=== PATIENT | female | born 1950 | race Caucasian/White ===

== ENCOUNTER 2016-02-18 14:52 | Emergency (ER) | payer MEDICARE, OTHER ==
[~2016-02-18] VITALS: Ht 157.5 cm; Wt 70.0 kg
[2016-02-18 15:01] VITALS: BP 138/60; PULSE 62; RESP 16; TEMP 97.6; O2SAT 99
[2016-02-18] MEDS ORDERED: MAXZ PO (15:12)
[2016-02-18] MEDS ORDERED: CALC1TAB42 PO (15:12)
[2016-02-18] MEDS ORDERED: BARIATRIC VITAMIN (15:12)
[2016-02-18] MEDS ORDERED: ALLE60TA PO (15:12)
--- NOTE | 2016-02-18 15:38 | PD ---
HPI Chief Complaint: Eye Problems/Injury Time Seen by Provider: 15:15 Travel History International Travel<30 days: No Contact w/Intl Traveler<30days: No Traveled to known affect area: No History of Present Illness HPI 66-year-old female with history of lupus presents to the emergency room for evaluation of "water blister" on the right eye that started yesterday. Patient states while eating lunch, she felt like something hit her eye and then had foreign body sensation the remainder of the day. When she went home and looked in the mirror she saw 2 blisters in the eye. States sometime after midnight one of the blisters popped on its own. Patient called her assistant to the vice president this morning who lives in [place] and he recommended she come straight to the emergency room for evaluation. She has history of shingles in the right eye but states this feels nothing like that. Denies significant pain. Reports burning/irritation. Denies changes in visual acuity, photophobia, drainage, or significant redness. PFSH Past Medical History Hx Anticoagulant Therapy: No Cardiovascular Problems: Yes (HTN) Diabetes: No Hypertension: Yes ?: Not Past Surgical History Eye Surgery: Yes (CATARACTS) Hysterectomy: Yes Other Surgery: Yes (GASTRIC BYPASS, LAROSE'S [facility]ROMA) Social History Alcohol Use: No Tobacco Use: No Substance Use: No Allergies-Medications (Allergen,Severity, Reaction): Coded Allergies: Lovenox (Verified Allergy, Severe, 02/18/16) Reported Meds & Prescriptions Reported Meds & Active Scripts Active Reported Ml Allergy (Fexofenadine HCl) 60 Mg Tab Unknown Dose PO DAILY Calcium 500+D (Calcium Carbonate-Cholecalciferol) 500-200 Mg-Unit Tab 1 Tab PO DAILY [Bariatric Vitamin] Maxzide (Triamterene/HCTZ) 75-50 Mg Tab 1 Tab PO DAILY Review of Systems Except as stated in HPI: all other systems reviewed are Neg Physical Exam Narrative GENERAL: Well-nourished, well-developed female in no acute distress. Afebrile. Ambulatory. SKIN: Warm and dry. HEAD: Normocephalic. EYES: PERRL, EOMI, no discharge. No scleral icterus. Visual acuity 20/25 bilaterally. Mild injection of the right medial eye. There is a small vesicle on the right medial sclera. Fluorescein staining reveals no corneal abrasion, ulceration, or foreign body. Negative Angelica sign. NECK: Supple, trachea midline. No JVD or lymphadenopathy. Data Data Last Documented VS Vital Signs Date Time Temp Pulse Resp B/P Pulse Ox O2 Delivery O2 Flow Rate FiO2 02/18/16 15:01 97.6 62 16 138/60 99 Orders Proparacaine 0.5% Opth Soln (Alcaine 0.5 (02/18/16 15:45) MDM Medical Decision Making Medical Screen Exam Complete: Yes Emergency Medical Condition: Yes Medical Record Reviewed: Yes Differential Diagnosis Conjunctival cyst versus scleritis versus shingles unlikely Narrative Course 66-year-old female with a history of lupus presents to the emergency room for evaluation of right eye blisters since yesterday. Patient states it started after she felt like something struck her in the eye during lunch. States that around in the afternoon she noticed 2 bubbles in her eye. One has since popped. Patient reports irritation from the blisters but denies eye pain, photophobia, changes in visual acuity, or drainage. Physical exam reveals a conjunctival cyst on the right medial sclera with mild surrounding injection. EOMI without pain. Visual acuity is 20/25 bilaterally. Fluorescein staining reveals no ulceration, abrasion, or foreign body. Negative Angelica sign. No evidence of shingles. I spoke to the assistant to the vice president on-call, Dr. Pollock, who recommends follow-up in the office without any prescriptions. Patient was given information for follow-up and told to return sooner for worsening symptoms. She understands and agrees to this plan. Diagnosis Primary Impression: Conjunctival cyst of right eye Referrals: Tosin Ramos MD,Yohana CANTRELL Patient Instructions: Eye Pain (ED), General Instructions Additional Instructions: Rest and drink plenty of fluids. Follow-up with Dr. Pollock. Call her office for follow-up appointment in the morning. Return for worsening symptoms. Disposition: 01 DISCHARGE HOME Condition: Stable Ghazala Mclean Feb 18, 2016 15:38
[2016-02-18] MEDS ORDERED: PROPARACAINE HCL 0.5% OPHT SOLN 15 ML BTL EACH EYE ONE (15:45)
== END 2016-02-18 16:14 | disposition home or self-care (01) ==
LOC: PHEFT 14:52
DX: H11.441 Conjunctival cysts, right eye (principal)
CPT/HCPCS: 99283